=== PATIENT | male | born 1945 | race Caucasian/White ===

== ENCOUNTER → 2016-07-11 | Outpatient (CLI) | payer OTHER ==
[~2016-07-11] MED LIST: FENTANYL PF 100 MCG/2ML ONE; FLUMAZENIL 0.1 MG/1 ML, 5ML ONE; GADOBUTROL 10 MMOL/10 ML PFS ONE; MIDAZOLAM 1 MG/ML, 5ML ONE; NALOXONE 1 MG/ML, 2ML ONE
== END | disposition home or self-care (01) ==
LOC: RAD 08:43
PROVIDERS: ATTEND Neurological Surgery
DX: G31.89 Other specified degenerative diseases of nervous system (principal)
CPT/HCPCS: 36415; 70450; 70553; 82565; J2250; J3010; 99156; 99157; A9585; J2310